=== PATIENT | male | born 1980 | race Caucasian/White ===

== ENCOUNTER 2017-02-18 00:07 | Emergency (ER) | payer OTHER, BC ==
[2017-02-18 00:26] VITALS: BP 128/72
--- NOTE | 2017-02-18 00:55 | EDM.PDOC ---
ED HPI GENERAL MEDICAL PROBLEM - General Chief Complaint: Wound Recheck Stated Complaint: INFECTED ANKLE FROM SURGERY-[facility] Time Seen by Provider: 02/18/17 00:20 Source of Information: Reports: Patient History Limitations: Reports: No limitations - History of Present Illness INITIAL COMMENTS - FREE TEXT/NARRATIVE: increasing redness and warmth to left ankle with drainage tonight from wound. Hx w/c ankle injury with surgery. previous wound infection. Appointment tomorrow with Dr. Barros. Location: Reports: lower extremity, left Quality: Reports: Ache, Burning Worsens with: Reports: Movement Treatments ENVIRONMENTAL SERVICES AIDE: Reports: Acetaminophen Left Ankle Pain Score (Numeric/FACES): 0 - Related Data Allergies Allergy/AdvReac Type Severity Reaction Status Date / Time Penicillins Allergy Anaphylactic Verified 02/18/17 00:27 Shock Home Meds: Home Meds . [No Known Home Meds] 09/07/16 [History] Past Medical History - Past Health History Medical/Surgical History: Denies Medical/Surgical History Cardiovascular History: Reports: None Respiratory History: Reports: None Gastrointestinal History: Reports: None Genitourinary History: Reports: None Musculoskeletal History: Reports: None Neurological History: Reports: None Psychiatric History: Reports: None Endocrine/Metabolic History: Reports: None Hematologic History: Reports: None Immunologic History: Reports: None Oncologic (Cancer) History: Reports: None Dermatologic History: Reports: None - Infectious Disease History Infectious Disease History: Reports: Chicken pox - Past Surgical History Head Surgeries/Procedures: Reports: None Other HEENT Surgeries/Procedures: orbital blow out fx SURGICAL REPAIR WITH MESH Cardiovascular Surgical History: Reports: None Respiratory Surgical History: Reports: None GI Surgical History: Reports: None Male Surgical History: Reports: None Musculoskeletal Surgical History: Reports: None, Other (see below) Other Musculoskeletal Surgeries/Procedures:: L) ring finger injury Social & Family History - Family History Musculoskeletal: Reports: Osteoarthritis, Osteoporosis - Tobacco Use Smoking Status *Q: Current Every Day Smoker Years of Tobacco use: 8 Packs/Tins Daily: 8 Used Tobacco, but Quit: No Second Hand Smoke Exposure: Yes - Caffeine Use Caffeine Use: Reports: Coffee, Soda, Tea Other Caffeine Use: AVERAGE OF 4 12 OZ CUP DAILY - Alcohol Use Date of Last Drink: 02/17/17 - Recreational Drug Use Recreational Drug Use: No Drug Use in Last 12 Months: No ED ROS GENERAL - Review of Systems Review Of Systems: See Below Musculoskeletal: Reports: joint pain (left ankle), joint swelling Skin: Reports: wound (left lateral ankle 1 cm wound white green thick drainage. redness warmth) Neurological: Reports: No Symptoms Hematologic/Lymphatic: Reports: easy bleeding ED EXAM, GENERAL - Physical Exam Exam: See Below Exam Limited By: No limitations General Appearance: alert, no apparent distress, other (strong odor ETOH) Ears: normal external exam Nose: normal inspection Throat/Mouth: Normal inspection Head: atraumatic, normocephalic Neck: normal inspection Respiratory/Chest: no respiratory distress, lungs clear Cardiovascular: normal peripheral pulses, regular rate, rhythm Extremities: pedal edema (left ankle), increased warmth (left lateral ankle), redness Neurological: alert, oriented Skin Exam: Warm, Erythema, Other (1.5cm open area left ankle acant white greeenis discharge.) Course - Vital Signs Last Recorded V/S: Last Vital Signs Temp 97.6 F 02/18/17 00:16 Pulse 85 02/18/17 00:16 Resp 19 02/18/17 00:16 BP 128/72 02/18/17 00:16 Pulse Ox 100 02/18/17 00:16 - Orders/Labs/Meds Orders: Active Orders 24 hr Category Date Time Status CULTURE WOUND [RM] Stat Lab 02/18/17 00:33 Received Labs: Laboratory Tests 02/18/17 02/18/17 Range/Units 01:07 01:07 WBC 7.9 (5.0-10.0) 10^3/uL RBC 4.22 L (4.6-6.2) 10^6/uL Hgb 15.1 (14.0-18.0) g/dL Hct 43.1 (40.0-54.0) % MCV 102.1 H (80-100) fL MCH 35.8 H (27.0-34.0) pg MCHC 35.0 (33.0-35.0) g/dL Plt Count 145 L (150-450) 10^3/uL Neut % (Auto) 62.8 (42.2-75.2) % Lymph % (Auto) 25.2 (20.5-50.1) % Sawyer % (Auto) 9.3 H (2-8) % Eos % (Auto) 2.6 (1.0-3.0) % Baso % (Auto) 0.1 (0.0-1.0) % Sodium 139 (135-145) mmol/L Potassium 3.5 L (3.6-5.0) mmol/L Chloride 107 (101-111) mmol/L Carbon Dioxide 25.0 (21.0-31.0) mmol/L Anion Gap 10.5 BUN 10 (7-18) mg/dL Creatinine 0.9 (0.6-1.3) mg/dL Est Cr Clr Drug Dosing 135.62 mL/min Estimated GFR (MDRD) > 60 BUN/Creatinine Ratio 11.11 Glucose 93 (74-105) mg/dL Calcium 8.9 (8.4-10.2) mg/dl Total Bilirubin 0.3 (0.2-1.0) mg/dL AST 23 (10-42) IU/L ALT 28 (10-60) IU/L Alkaline Phosphatase 44 (42-121) IU/L Total Protein 7.0 (6.7-8.2) g/dl Albumin 4.2 (3.2-5.5) g/dl Globulin 2.8 Albumin/Globulin Ratio 1.50 Meds: Medications Discontinued Medications Generic Name Dose Route Start Last Admin Trade Name Freq PRN Reason Stop Dose Admin Doxycycline Hyclate 100 mg 02/18/17 01:49 02/18/17 01:57 Vibramycin PO 02/18/17 01:50 100 mg ONETIME ONE Administration - Radiology Interpretation Free Text/Narrative:: negative ankle xray Departure - Departure Time of Disposition: 01:50 Disposition: Home, Self-Care 01 Condition: good Clinical Impression: Cellulitis Qualifiers: Site of cellulitis: extremity Site of cellulitis of extremity: lower extremity Laterality: left Qualified Code(s): L03.116 - Cellulitis of left lower limb Wound infection after surgery Qualifiers: Encounter type: subsequent encounter Qualified Code(s): T81.4XXD - Infection following a procedure, subsequent encounter Instructions: Wound Infection, [id number] Forms: ED Department Discharge Additional Instructions: elevate extremity cover with dressing while draining doxycycline 100mg one twice daily for 10 days follow with clinic appointment later today as previously scheduled tylenol or ibuprofen for discomfort - My Orders Last 24 Hours: My Active Orders 02/18/17 00:33 CULTURE WOUND [RM] Stat - Assessment/Plan Last 24 Hours: My Active Orders 02/18/17 00:33 CULTURE WOUND [RM] Stat
[2017-02-18 01:33] LABS: CHLORIDE,CL 107 mmol/L (101-111); SODIUM,NA 139 mmol/L (135-145)
[2017-02-18] MEDS ORDERED: Doxycycline 100 MG Cap PO ONE (01:49)
== END 2017-02-18 02:00 | disposition home or self-care (01) ==
LOC: DL.ED 00:07
DX: T81.4XXD Infection following a procedure, subsequent encounter (principal); L03.116 Cellulitis of left lower limb; Z88.0 Allergy status to penicillin; F17.210 Nicotine dependence, cigarettes, uncomplicated
CPT/HCPCS: 36415; 73610; 80053; 85025; 87070; 99283; A9270; 87077; 87186

== ENCOUNTER 2018-04-14 11:43 | Emergency (ER) | payer OTHER, BC ==
[2018-04-14] MEDS ORDERED: Lidocaine 1% 30 ML SDV INJECT ONE (12:02)
[2018-04-14] MEDS ORDERED: Diphtheria,Pertussis(Acell),Tetanus Vaccine 0.5 ML SDV IM ONE (12:02)
[2018-04-14] MEDS ORDERED: Bacitracin Oint 1 GM U/D Packet TOP ONE (12:02)
--- NOTE | 2018-04-14 12:09 | EDM.PDOC ---
ED HPI GENERAL MEDICAL PROBLEM - General Chief Complaint: Laceration Stated Complaint: WORKERS COMP NEEDS AMILCAR [id number] Time Seen by Provider: 04/14/18 12:04 Source of Information: Reports: Patient History Limitations: Reports: No Limitations - History of Present Illness INITIAL COMMENTS - FREE TEXT/NARRATIVE: This 37 yo male patient reports to the ED with a laceration to his right hand ( 3rd MCP). The patient reports he got his hand slammed in a gate today. The patient reports no difficulties moving his hand or finger. Onset: Today Duration: Constant Location: Reports: Upper Extremity, Right Quality: Reports: Dull Severity: Mild Improves with: Reports: None Worsens with: Reports: None Context: Reports: Other Associated Symptoms: Reports: No Other Symptoms - Related Data Allergies Allergy/AdvReac Type Severity Reaction Status Date / Time Penicillins Allergy Anaphylactic Verified 04/14/18 11:49 Shock Home Meds: Home Meds . [No Known Home Meds] 09/07/16 [History] Past Medical History - Past Health History Medical/Surgical History: Denies Medical/Surgical History Cardiovascular History: Reports: None Respiratory History: Reports: None Gastrointestinal History: Reports: None Genitourinary History: Reports: None Musculoskeletal History: Reports: None Neurological History: Reports: None Psychiatric History: Reports: None Endocrine/Metabolic History: Reports: None Hematologic History: Reports: None Immunologic History: Reports: None Oncologic (Cancer) History: Reports: None Dermatologic History: Reports: None - Infectious Disease History Infectious Disease History: Reports: Chicken Pox - Past Surgical History Head Surgeries/Procedures: Reports: None HEENT Surgical History: Reports: Other (See Below) Other HEENT Surgeries/Procedures: orbital blow out fx SURGICAL REPAIR WITH MESH Cardiovascular Surgical History: Reports: None Respiratory Surgical History: Reports: None GI Surgical History: Reports: None Male Surgical History: Reports: None Musculoskeletal Surgical History: Reports: Other (See Below) Other Musculoskeletal Surgeries/Procedures:: left ankel Social & Family History - Family History Family Medical History: Noncontributory Musculoskeletal: Reports: Osteoarthritis, Osteoporosis - Tobacco Use Smoking Status *Q: Current Every Day Smoker Years of Tobacco use: 17 Packs/Tins Daily: 1 - Caffeine Use Caffeine Use: Reports: Coffee Other Caffeine Use: AVERAGE OF 4 12 OZ CUP DAILY - Recreational Drug Use Recreational Drug Use: No ED ROS GENERAL - Review of Systems Review Of Systems: ROS reveals no pertinent complaints other than HPI. ED EXAM, SKIN/RASH Exam: See Below Exam Limited By: No Limitations General Appearance: Alert, WD/WN, Mild Distress Eye Exam: Bilateral Eye: EOMI, Normal Inspection, PERRL Ears: Normal External Exam, Normal Canal, Hearing Grossly Normal, Normal TMs Nose: Normal Inspection, Normal Mucosa, No Blood Throat/Mouth: Normal Inspection, Normal Lips, Normal Teeth, Normal Gums, Normal Oropharynx, Normal Voice, No Airway Compromise Head: Atraumatic, Normocephalic Neck: Normal Inspection, Supple, Non-Tender, Full Range of Motion Respiratory/Chest: No Respiratory Distress, Lungs Clear, Normal Breath Sounds, No Accessory Muscle Use, Chest Non-Tender Cardiovascular: Normal Peripheral Pulses, Regular Rate, Rhythm, No Edema, No Gallop, No JVD, No Murmur, No Rub GI/Abdominal: Normal Bowel Sounds, Soft, Non-Tender, No Organomegaly, No Distention, No Abnormal Bruit, No Mass (Male) Exam: Deferred Rectal (Males) Exam: Deferred Back Exam: Normal Inspection, Full Range of Motion, NT Extremities: Normal Range of Motion, Non-Tender, No Pedal Edema, Normal Capillary Refill Neurological: Alert, Oriented, CN II-XII Intact, Normal Cognition, Normal Gait, Normal Reflexes, No Motor/Sensory Deficits Psychiatric: Normal Affect, Normal Mood Skin: Warm, Dry, Normal Color, No Rash Location, Skin: Lower Extremity, Right Characteristics: Linear Lymphatic: No Adenopathy ED SKIN PROCEDURES - Laceration/Wound Repair Right Hand Lac/Wound length In cm: 1.5 Appearance: Subcutaneous, Moderately Contaminated Distal NVT: No Tendon Injury Anesthetic Type: Local Local Anesthesia - Lidocaine (Xylocaine): 1% Plain Local Anesthetic Volume: 4cc Skin Prep: Chlorhexidine (Hibiciens), Saline Exploration/Debridement/Repair: Wound Explored, In a Bloodless Field, No Foreign Material Found Closed with: Sutures Suture Size: 4-0 # of Sutures: 6 Suture Type: Prolene, Interrupted, Simple Drain Placement: No Sterile Dressing Applied: Nurse Tetanus Status Addressed: Yes Complications: No Course - Vital Signs Last Recorded V/S: Last Vital Signs Temp 36.6 C 04/14/18 11:49 Pulse 92 04/14/18 11:49 Resp 16 04/14/18 11:49 BP 121/75 06/18/18 11:49 Pulse Ox 99 04/14/18 11:49 - Orders/Labs/Meds Orders: Active Orders 24 hr Category Date Time Status Vaccines to be Administered [RC] PER UNIT ROUTINE Care 04/14/18 12:02 Ordered Meds: Medications Discontinued Medications Generic Name Dose Route Start Last Admin Trade Name Gerri PRN Reason Stop Dose Admin Bacitracin 1 dose 04/14/18 12:02 04/14/18 12:09 Bacitracin Oint 1 Gm TOP 04/14/18 12:03 1 dose ONETIME ONE Administration Diphtheria/Tetanus/Acell Pertussis 0.5 ml 04/14/18 12:02 04/14/18 12:09 Adacel IM 04/14/18 12:03 0.5 ml .ONCE ONE Administration Lidocaine HCl 30 ml 04/14/18 12:02 04/14/18 12:09 Xylocaine-Mpf 1% INJECT 04/14/18 12:03 30 ml ONETIME ONE Administration Departure - Departure Time of Disposition: 13:37 Disposition: Home, Self-Care 01 Condition: Fair Clinical Impression: Laceration of right hand Qualifiers: Encounter type: initial encounter Foreign body presence: without foreign body Qualified Code(s): S61.411A - Laceration without foreign body of right hand, initial encounter - Discharge Information Instructions: Laceration Care, Adult, [id number], Stitches, [place], or Adhesive Wound Closure, [id number] Forms: ED Department Discharge Care Plan Goals: The patient was advised of the examination and x-ray results during the visit. The laceration margins were well approximated during the visit without incident. The patient should keep the area clean and dry over the next 24 hours. The sutures should be removed in approximately 14 days. If the patient has any additional symptoms or concerns, the patient should follow-up with his primary care facility or return to the emergency department. - My Orders Last 24 Hours: My Active Orders 04/14/18 12:02 Vaccines to be Administered [RC] PER UNIT ROUTINE - Assessment/Plan Last 24 Hours: My Active Orders 04/14/18 12:02 Vaccines to be Administered [RC] PER UNIT ROUTINE
--- NOTE | 2018-04-14 12:52 | CR ---
Clinical history: 37-year-old male injured right hand (hit with grain bin door). Interpretation: No sign of acute fracture/dislocation right hand or wrist. (Old healed fracture deformity mid diaphysis fifth metacarpal) No foreign bodies.
[2018-04-14 13:47] VITALS: BP 120/74
== END 2018-04-14 13:44 | disposition home or self-care (01) ==
LOC: DL.ED 11:43
DX: S61.411A Laceration without foreign body of right hand, initial encounter (principal); Z23 Encounter for immunization; F17.210 Nicotine dependence, cigarettes, uncomplicated; Z88.0 Allergy status to penicillin; W22.8XXA Striking against or struck by other objects, initial encounter
CPT/HCPCS: 12001; 12011; 73130-RT; 90715; 99283

== ENCOUNTER 2025-09-30 11:12 | Emergency (ER) | payer OTHER, BC ==
[2025-09-30 11:27] VITALS: BP 144/91
[2025-09-30] MEDS: Fluorescein 1 MG Ophth Strip EYEBOTH ONE (11:32)
[2025-09-30 11:52] VITALS: PULSE 58
== END 2025-09-30 11:46 | disposition home or self-care (01) ==
LOC: DL.ED 11:12
DX: S05.02XA Injury of conjunctiva and corneal abrasion without foreign body, left eye, initial encounter (principal); F17.200 Nicotine dependence, unspecified, uncomplicated; Z88.0 Allergy status to penicillin; X58.XXXA Exposure to other specified factors, initial encounter; Y93.89 Activity, other specified
CPT/HCPCS: 99283; J3490